=== PATIENT | female | born 1995 | race Caucasian/White ===

== ENCOUNTER → 2023-09-22 17:40 | Outpatient (CLI) | payer OTHER, SELFPAY ==
[2023-09-22 18:08] LABS: Appearance Urine UA CLOUDY; Bilirubin Urine UA NEGATIVE (NEGATIVE); Color Urine UA YELLOW; Glucose Urine UA NEGATIVE (Negative); Ketones Urine UA NEGATIVE (NEGATIVE); Leukocyte Esterase Urine UA TRACE (NEGATIVE); Nitrite Urine UA NEGATIVE (Negative); Occult Blood Urine UA NEGATIVE (Negative); Protein Urine UA NEGATIVE (Negative); Specific Gravity Urine UA 1.025 (1.000-1.035); Urobilinogen Urine UA 0.2 E.U./dL (0.2)
[2023-09-22 18:34] LABS: Bacteria Urine Few (2-10); RBC Urine 0-1/HPF (0-5/HPF); Squamous Epithelial Cell Urine 1-5 /HPF (0-5/HPF); WBC Urine 1-5/HPF (0-5/HPF)
== END ==
LOC: LAB 17:42
PROVIDERS: Referring Provider Family Medicine; Visit Provider Family Medicine
DX: O09.299 Supervision of pregnancy with other poor reproductive or obstetric history, unspecified trimester (principal); R30.0 Dysuria
CPT/HCPCS: 81001; 87077; 87086; 87186

== ENCOUNTER → 2023-09-25 13:58 | Outpatient (CLI) | payer OTHER, SELFPAY ==
[2023-09-25 20:09] LABS: Urine N gonorrhoeae NOT DETECTED
[2023-09-25 20:28] LABS: Urine Chlamydia NOT DETECTED
== END ==
PROVIDERS: Visit Provider Specialist
DX: Z34.81 Encounter for supervision of other normal pregnancy, first trimester (principal); Z3A.08 8 weeks gestation of pregnancy
CPT/HCPCS: 87491; 87591

== ENCOUNTER → 2023-09-25 14:21 | Outpatient (CLI) | payer OTHER, SELFPAY ==
[2023-09-25 15:59] LABS: Add Manual Diff / Slide Review NO; Basophils Absolute Auto 0 /uL (0-100); Basophils Percent Auto 0.6 % (0-2); Eosinophils Absolute Auto 100 /uL (0-450); Eosinophils Percent Auto 1.6 % (2-4); Hematocrit 34.8 % (36-46); Hemoglobin 11.5 g/dL (12.0-16.0); Lymphocytes Absolute Auto 1100 /uL (1100-4500); Mean Corpuscular HGB Conc 33.1 % (30-36); Mean Corpuscular Hemoglobin 26.5 PG (26-34); Mean Corpuscular Volume 80.2 fL (80-100); Monocytes Absolute Auto 600 /uL (0-900); Monocytes Percent Auto 8.6 % (3-14); Neutrophils Absolute Auto 5200 /uL (1500-7000); Neutrophils Percent Auto 74.2 % (50-75); Platelet Count 239 X10^3/uL (150-400); Red Blood Cell Count 4.34 X10^6/uL (4.0-5.2); Red Cell Distribution Width 15.3 % (11.6-14.8)
[2023-09-25 16:24] LABS: Alanine Aminotransferase 13 IU/L (<35); Aspartate Aminotransferase 24 IU/L (14-36); Blood Urea Nitrogen 9 mg/dL (7-17); Estimated Glomerular Filt Rate > 60 mL/min (>60); Uric Acid 4.1 mg/dL (2.5-6.2)
[2023-09-28 17:44] LABS: HIV 1 & 2 Ab/Ag 4th Gen Combo NEGATIVE (NEGATIVE); Hep C Virus Ab w/Reflex Quant NEGATIVE s/c (NEGATIVE); Hepatitis B Surface Antigen NEGATIVE s/c (NEGATIVE); Rubella Antibody IgG 1.8 IU/mL (>15)
[2023-09-29 03:16] LABS: RPR Screen Non Reactive (Non Reactive)
[2023-09-29 17:36] LABS: Varicella IgG Antibody >4000 index (Immune >165)
== END ==
PROVIDERS: Referring Provider Family Medicine; Visit Provider Family Medicine
DX: O09.291 Supervision of pregnancy with other poor reproductive or obstetric history, first trimester (principal); Z3A.08 8 weeks gestation of pregnancy
CPT/HCPCS: 36415; 80055; 82565; 84450; 84460; 84520; 84550; 86787; 86803; 86850; 86900; 86901; 87389; 87491; 87591

== ENCOUNTER → 2023-12-17 15:25 | Outpatient (CLI) | payer OTHER, SELFPAY ==
--- NOTE | 2023-12-17 15:26 | DI.US.S_ITS ---
PROCEDURE: US OB >= 14 WEEKS FETUS INDICATIONS: ANATOMY OUTSIDE/PRIOR DATING DATA: Last menstrual period (LMP): 07/29/2023 LMP-based estimated date of delivery (CHARLY): 05/04/2024. First dating scan (date and location): 09/25/2023. Estimated date of delivery (CHARLY) from first dating scan: 05/03/2024. Working CHARLY is 05/04/2024 TECHNIQUE: Real-time scanning was performed of the fetus, with image documentation and biometric measurements. COMPARISON: None. FINDINGS: General: A single living intrauterine gestation is present. Presentation: Transverse. Placenta: Placental position is posterior , without previa. Amniotic fluid index: 12.9 cm, normal range is 5-24 cm. Single deepest vertical pocket is 4.0 cm. heart rate: 143 beats per minute. Maternal cervical canal: 5.2 cm long. Normal lower limit is 2.5 cm. biometrics: Biparietal diameter: 20 weeks 2 days Head circumference: 20 weeks Abdominal circumference: 20 weeks 1 day Femur length: 20 weeks 6 days Clinically estimated gestational age: 20 weeks 1 day Composite gestational age from present scan: 20 weeks 2 days Estimated weight and percentile: 3 in 50 g; 59 percentile Anatomic survey: Neuro: Ventricles are non-dilated at less than 10 mm. Cisterna magna is normal at 3-11 mm. Cerebellum is normal in size and morphology. Nuchal skin fold: Normal at less than 6 mm between 14-21 weeks gestational age. Face: Nose and lips, facial profile are normal. Spine: No evidence for spina bifida. Heart: 4-chambered heart is present, with normal ventricular outflow tracts. Diaphragm: Diaphragm is intact. Stomach: Left-sided stomach is present. Kidneys: No hydronephrosis. Normal is less than 5 mm in 2nd trimester, less than 7 mm in 3rd trimester. Cord: 3-vessel cord has orthotopic insertion. Bladder: Normal in size. Extremities: All 4 extremities identified. IMPRESSION: 1. Single living IUP redemonstrated and interval growth is normal. 2. Normal anatomic survey. We strive to produce accurate, complete, and clear reports of imaging services. To assist us in improving patient care, this report was composed using standard report templates and voice recognition software. Therefore, it may contain abnormal punctuation, insertions and/or omissions. Occasional wrong-word or sound-alike substitutions may occur. Though we review the report and make efforts to correct it, we do recommend that the report be read carefully in proper context to recognize any text inaccuracies. Dictated by: Tim ENGLAND Interpreted: Aleta Lyles MD on 12/28/2023 at 16:38 Transcribed by: MAVIS on 12/28/2023 at 16:40 Approved by: Aleta Lyles M.D. on 12/28/2023 at 17:22
== END ==
PROVIDERS: Referring Provider Student in an Organized Health Care Education/Training Program; Visit Provider Student in an Organized Health Care Education/Training Program
DX: Z34.82 Encounter for supervision of other normal pregnancy, second trimester (principal); Z3A.20 20 weeks gestation of pregnancy
CPT/HCPCS: 76811

== ENCOUNTER → 2024-01-22 10:10 | Outpatient (CLI) | payer OTHER, SELFPAY ==
[2024-01-22 11:31] LABS: Glucose Fasting Gestational 77 mg/dL (76-95)
[2024-01-22 13:05] LABS: Glucose 1 Hour Gest 147 mg/dL (76-180)
[2024-01-22 14:49] LABS: Glucose 2 Hour Gest 153 mg/dL (76-155)
[2024-01-22 14:49] LABS: Glucose 3 Hour Gest 112 mg/dL (76-140); Glucose Tol Interp,Gestational INTERPRETATION
== END ==
PROVIDERS: Referring Provider Specialist; Visit Provider Specialist
DX: Z34.82 Encounter for supervision of other normal pregnancy, second trimester (principal); Z3A.26 26 weeks gestation of pregnancy
CPT/HCPCS: 36415; 82951; 82952; 85014; 85018

== ENCOUNTER 2024-01-24 15:38 | Observation (INO) | payer OTHER, SELFPAY ==
[2024-01-24 16:59] LABS: Appearance Urine UA CLEAR; Bilirubin Urine UA NEGATIVE (NEGATIVE); Color Urine UA YELLOW; Glucose Urine UA NEGATIVE (Negative); Ketones Urine UA 1+ (NEGATIVE); Leukocyte Esterase Urine UA NEGATIVE (NEGATIVE); Nitrite Urine UA NEGATIVE (Negative); Occult Blood Urine UA NEGATIVE (Negative); Protein Urine UA NEGATIVE (Negative); Specific Gravity Urine UA 1.015 (1.000-1.035); Urobilinogen Urine UA 0.2 E.U./dL (0.2)
[2024-01-24 17:08] LABS: Bacteria Urine Occasional (0-1); Culture Indicated Urine Cult Not Indicated; RBC Urine 0-1/HPF (0-5/HPF); Squamous Epithelial Cell Urine 10-30 /HPF (0-5/HPF); Urine Volume 10mL (spun); WBC Urine 0-1/HPF (0-5/HPF)
== END 2024-01-24 17:50 | disposition home or self-care (01) ==
LOC: LABOR 15:39
PROVIDERS: Admitting Provider Family Medicine; Referring Provider Family Medicine; Visit Provider Family Medicine
DX: O26.892 Other specified pregnancy related conditions, second trimester (principal); M54.50 Low back pain, unspecified; O13.2 Gestational [pregnancy-induced] hypertension without significant proteinuria, second trimester; Z3A.25 25 weeks gestation of pregnancy
CPT/HCPCS: 59025; 81001; G0378; G0379

== ENCOUNTER → 2024-04-15 11:13 | Outpatient (CLI) | payer OTHER, SELFPAY ==
[2024-04-15 12:30] LABS: Hematocrit 26.3 % (36-46); Hemoglobin 8.4 g/dL (12.0-16.0)
[2024-04-16 10:10] LABS: Strep Grp B PCR POS for Grp B Strep
== END ==
PROVIDERS: Referring Provider Obstetrics & Gynecology; Visit Provider Obstetrics & Gynecology
DX: Z34.83 Encounter for supervision of other normal pregnancy, third trimester (principal); Z3A.37 37 weeks gestation of pregnancy
CPT/HCPCS: 36415; 85014; 85018; 87653

== ENCOUNTER 2024-04-29 13:17 | Observation (INO) | payer OTHER, SELFPAY ==
[2024-04-29 14:03] LABS: Add Manual Diff / Slide Review NO; Basophils Absolute Auto 0 /uL (0-100); Basophils Percent Auto 0.4 % (0-2); Eosinophils Absolute Auto 100 /uL (0-450); Hematocrit 28.4 % (36-46); Lymphocytes Absolute Auto 1000 /uL (1100-4500); Lymphocytes Percent Auto 12.8 % (25-40); Mean Corpuscular HGB Conc 31.7 % (30-36); Mean Corpuscular Volume 72.6 fL (80-100); Monocytes Absolute Auto 600 /uL (0-900); Monocytes Percent Auto 7.6 % (3-14); Neutrophils Absolute Auto 5800 /uL (1500-7000); Neutrophils Percent Auto 78.2 % (50-75); Platelet Count 131 X10^3/uL (150-400); Red Blood Cell Count 3.91 X10^6/uL (4.0-5.2); White Blood Cell Count 7.5 X10^3/uL (4.5-11.0)
[2024-04-29 14:17] LABS: Alanine Aminotransferase 13 IU/L (<35); Albumin 3.7 g/dL (3.5-5.0); Albumin Globulin Ratio 1.3 (1.0-2.8); Alkaline Phosphatase 140 U/L (38-126); Aspartate Aminotransferase 19 IU/L (14-36); BUN Creatinine Ratio 8.2 (6-22); Bilirubin Total 0.6 mg/dL (0.2-1.3); Blood Urea Nitrogen 5 mg/dL (7-17); Calcium 9.1 mg/dL (8.4-10.2); Carbon Dioxide 19 mmol/L (22-32); Chloride 109 mmol/L (98-107); Estimated Glomerular Filt Rate > 60 mL/min (>60); Globulin 2.8 g/dL (1.7-4.1); Glucose 123 mg/dL (70-100); HEMOLYSIS < 15 (0-50); Potassium 3.7 mmol/L (3.4-5.1); Sodium 135 mmol/L (137-145); Total Protein 6.5 g/dL (6.3-8.2)
[2024-04-29 14:21] LABS: Creatinine Urine Random 70.44 mg/dL; Protein (Total) Urine Random 14 mg/dL (0-12); Protein Creatinine Ratio Urine 0.19 GRAM/24H
[2024-04-29 17:24] LABS: Uric Acid 5.3 mg/dL (2.5-6.2)
== END 2024-04-29 15:08 | disposition home or self-care (01) ==
PROVIDERS: Admitting Provider Obstetrics & Gynecology; Referring Provider Obstetrics & Gynecology; Visit Provider Obstetrics & Gynecology
DX: O13.3 Gestational [pregnancy-induced] hypertension without significant proteinuria, third trimester (principal); O47.1 False labor at or after 37 completed weeks of gestation; Z3A.39 39 weeks gestation of pregnancy
CPT/HCPCS: 59025; 80053; 82570; 84156; 84550; 85025; G0378; G0379

== ENCOUNTER 2024-05-01 23:22 | Observation (INO) | payer OTHER, SELFPAY | END 2024-05-01 23:59 | disposition home or self-care (01) | LOC: LABOR 23:25 | PROVIDERS: Admitting Provider Specialist; Referring Provider Specialist; Visit Provider Specialist | DX: O47.1 False labor at or after 37 completed weeks of gestation (principal); O13.3 Gestational [pregnancy-induced] hypertension without significant proteinuria, third trimester; Z3A.39 39 weeks gestation of pregnancy | CPT/HCPCS: G0378; G0379 ==

== ENCOUNTER 2024-05-04 07:15 | Inpatient (IN) | payer OTHER, SELFPAY ==
[2024-05-04] MEDS: LACTATED RINGERS 1,000 ML 100 ML IV ×2 (08:00→18:36)
[2024-05-04 08:52] LABS: Add Manual Diff / Slide Review NO; Basophils Absolute Auto 0 /uL (0-100); Basophils Percent Auto 0.7 % (0-2); Eosinophils Absolute Auto 100 /uL (0-450); Eosinophils Percent Auto 1.8 % (2-4); Hematocrit 28.9 % (36-46); Hemoglobin 9.1 g/dL (12.0-16.0); Lymphocytes Absolute Auto 1200 /uL (1100-4500); Lymphocytes Percent Auto 19.4 % (25-40); Mean Corpuscular HGB Conc 31.5 % (30-36); Mean Corpuscular Hemoglobin 23.9 PG (26-34); Monocytes Absolute Auto 600 /uL (0-900); Neutrophils Absolute Auto 4300 /uL (1500-7000); Neutrophils Percent Auto 68.1 % (50-75); Platelet Count 103 X10^3/uL (150-400); White Blood Cell Count 6.2 X10^3/uL (4.5-11.0)
[2024-05-04] MEDS: OXYTOCIN PREMIX 30 UNIT/500 ML PLAST..BAG IV (09:08)
[2024-05-04 09:13] LABS: Anisocytosis 3+
[2024-05-04] MEDS: AMPICILLIN 2,000 MG in SODIUM CHLORIDE 0.9% 100 ML 200 MG IV (09:34)
[2024-05-04 09:49] VITALS: BP 128/70
--- NOTE | 2024-05-04 09:57 | PM.OBHP.IH.1 ---
OB HPI Date/Time Date of admission: 05/04/24 Date Patient Seen: 05/04/24 Time Patient Seen: 09:10 History of Present Condition Chief complaint: L&D CHARLY Calculator Estimated Delivery Date Method Current WG Current Estimate 05/04/24 LMP (Uncertain) 46w 2d Other Estimates 05/03/24 Ultrasound #1 46w 3d Estimated Gestational Age (weeks): 40 : 4 Para: 3 care: good care, initiated at week # (8), number of visits (13) and pounds weight gain (31) Dating criteria OB: LMP confirmed by 1st trimester US Ultrasounds: normal 1st trimester US and normal mid trimester US Obstetrical complications: gestational hypertension Medical complications OB: other (low platelets) Indications Indication for induction OB: gestational HTN/pre-eclampsia Preadmission Labs Last OB Lab Results: Blood Type A Positive 05/21/24 18:18 Antibody Screen Negative 05/21/24 18:18 Hct 40.5 % (36-46) 05/21/24 18:18 Hgb 13.2 g/dL (12.0-16.0) 05/21/24 18:18 Hep Bs Antigen Negative s/c (NEGATIVE) 09/25/23 14:49 Hepatitis C Antibody Negative s/c (NEGATIVE) 09/25/23 14:49 Rubella Antibody 1.8 IU/mL (>15) L 09/25/23 14:49 VZV IgG Antibody >4000 index (Immune >165) 09/25/23 14:49 Group B Strep (PCR) Pos for grp b strep H 04/15/24 11:11 -: Chlamydia screen: negative, Gonorrhea screen: negative and Urine: negative -: PAP smear: Normal (11/05) External Labs -: Urine: negative Prior (ies) Past Pregnancies Del. Date GA/Weeks Labor Lgth Wt Sex Route Outcome Anesthesia Place Delv Breastfeed Preg Comp Name 10/24/12 41 6 10 lb 10 oz Male vaginal live - full term epidural [place], [place] attempted induced hyper- labor hemorrhage chorioamnionitis/endometr Candelario 06/13/17 40 72 9 lb 3 oz Male vaginal live - full term epidural MELVIN [place] ~30 months induced hyper- hemorrhage Imtiaz 05/04/22 40 6 7 lb 13 oz Male vaginal live - full term epidural [facility] Still going as of 09/21/23 induced hyper- hemorrhage other Kris Delivery Date: 05/04/22 Last Updated by: Rosa Ang RN KATIE w/ lots of spotting Evaluation Evaluation Baseline heart rate: 130 Variability: Moderate (11-25) monitor accelerations: Present Monitor Decelerations: Absent Status: Category l Dilation (cm): 2 Effacement (%): 75 station: -2 Position of cervix: mid Consistency: soft PFSH Medical History (Updated 06/05/24 @ 00:01 by ) History of radiation therapy PIH ( induced hypertension) 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 Surgical History (Updated 09/21/23 @ 09:40 by Rosa Ang RN) History of lung biopsy (~2000) [place] teeth extracted History of nephrectomy Family History (Updated 09/21/23 @ 10:22 by Rosa Ang RN) Grandmother Breast cancer Thyroid cancer Grandmother Interstitial lung disease Aunt Breast cancer Mother Breast cancer Hyperlipidemia Hypertension Bipolar disorder Depression Stillborn, abnormal Father Diabetes mellitus Hyperlipidemia Hypertension Heart failure Sister Depression Endometriosis Anxiety PCOS (polycystic ovarian syndrome) Brother Mckinney syndrome Son Autism Developmental disorder Speech delay Son Speech delay Tourette's syndrome Social History marital status: number of children: 3 (oldest currently living with his father) household members: spouse and children lives independently: Yes caregiver/support person: Yes housing: house pets and animals: Yes (cat (aware of precautions) education level: college (working on bachelor's degree) occupational status: previously employed and student current occupational exposures/hazards: No melissa/uatsdin: Caodaism special melissa needs: No travel history: recent (domestic only) seatbelt use: always helmet use: Yes water heater temp set < 120 deg: Yes working smoke detector in home: Yes fire extinguisher in home: Yes carbon monox detector in home: Yes firearms in home: Yes firearms unloaded and locked: Yes do you feel safe at home: Yes Smoking Status: Never smoker second hand exposure: No ( vapes, but not around the family) alcohol intake: never substance use type: does not use during the past year weight has: decreased > 10 lbs (below pre-baby weight) well-balanced diet: daily or most days daily servings fruits/ve or more times/day caffeine: Yes (~100-150mg/day) Type(s) of exercise: other (hiking) frequency: 5-6 times per week Meds Home Medications and Allergies Home Medications Medication Instructions Recorded Confirmed Type vitamin-ferrous sulfate 1 tab PO 1XD 09/21/23 06/16/24 History 27 mg iron-folic acid 0.8 mg tablet breast pump #1 ea 02/12/24 06/16/24 Rx escitalopram oxalate 10 mg tablet 10 mg PO DAILY #90 tabs 06/17/24 Rx (Lexapro) Allergies Allergy/AdvReac Type Severity Reaction Status Date / Time lactose AdvReac Mild Abdominal Verified 06/16/24 11:04 Pain OB Exam Vital signs Blood Pressure: 128/70 Pulse Rate: 83 Respiratory Rate: 18 Temperature: 98.3 F Narrative Exam Narrative: Generally: Patient is sitting up in bed, no acute distress Fundal height: 40 cm Estimated weight: 7-1/2 lb Extremities: No edema Objective Labs 05/05/24 05:40 Labs: Laboratory Results - last 24 hr 05/04/24 07:45 WBC 6.2 RBC 3.80 L Hgb 9.1 L Hct 28.9 L MCV 76.0 L D MCH 23.9 L MCHC 31.5 RDW 28.0 H Plt Count 103 L Neut % (Auto) 68.1 Lymph % (Auto) 19.4 L [place] % (Auto) 10.0 Eos % (Auto) 1.8 L Baso % (Auto) 0.7 Neut # (Auto) 4300 Lymph # (Auto) 1200 [place] # (Auto) 600 Eos # (Auto) 100 Baso # (Auto) 0 RBC Morphology See below Anisocytosis 3+ H Blood Type A Positive Antibody Screen Negative Assessment and Plan Assessment and Plan Assessment and Plan narrative: Assessment: 28-year-old 4 para 3 at 40 weeks' gestation for induction of labor due to gestational hypertension Group B strep positive Plan: Pitocin per protocol Epidural as necessary Antibiotics for group B strep prophylaxis Expected management to spontaneous vaginal delivery Time-Based Coding :: [TOTAL MINUTES] spent with patient and on the chart (including review of chart, obtaining history, exam, reviewing outside data, placing orders, documenting exam and treatment plan, and counseling patient) on [DATE].
[2024-05-04] MEDS: AMPICILLIN 1,000 MG in SODIUM CHLORIDE 0.9% 100 ML 200 MG IV ×2 (13:22→17:26)
[2024-05-04] MEDS: TRANEXAMIC ACID 1,000 MG in SODIUM CHLORIDE 0.9% 100 ML 600 MG IV (18:02)
[2024-05-04] MEDS: DERMOPLAST SPRAY 20% 60 ML 1 SPRAY TOP (20:11)
[2024-05-04] MEDS: WITCH HAZEL/GLYCERIN PADS 1 EACH TOP (20:11)
[2024-05-04] MEDS: KETOROLAC 30 MG/ML VIAL IV (20:12)
[2024-05-04] MEDS: METHYLERGONOVINE 0.2 MG TABLET PO (20:12)
[2024-05-05] MEDS: ACETAMINOPHEN 325 MG TABLET 650 MG PO (03:49)
[2024-05-05] MEDS: METHYLERGONOVINE 0.2 MG TABLET PO (03:49)
[2024-05-05 06:00] LABS: Hematocrit 33.3 % (36-46)
[2024-05-05 12:44] VITALS: BP 115/76; PULSE 82; RESP 15; TEMP 37.1
[2024-05-05] MEDS: MEASLES,MUMPS,RUBELLA VACC/PF 0.5 ML VIAL SUBCUT (14:09)
[2024-06-17 19:16] VITALS: BP 128/70; PULSE 83; RESP 18; TEMP 36.8
--- NOTE | 2024-06-17 19:19 | PM.OBPRVD ---
Events: Induced HTN and Labor Induction Labor & Delivery Delivery date: 05/04/24 Intrapartal Events: None Cervical ripening method: none Induction method: per pitocin protocol Delivery augmentation: rupture of membranes Delivery monitor: external FHT and external uterine Route of delivery: Episiotomy description: None L&D Laceration Description: None Quantitative Blood Loss: 100 Complications: None Narrative: Patient had artificial rupture membranes at 3:07 p.m.. She was complete at 5:34 p.m. and began pushing. She pushed for 15 minutes. At 1749, live delivered spontaneously in the OA presentation, perineum. Remainder body delivered without difficulty and was placed cord clamped cord bloods were obtained Pitocin was given fluids. The placenta delivered intact with a three-vessel cord at 5:56 p.m.. Perineum and vagina were inspected and there were no lacerations noted. QBL 100 cc. Apgars 9 at 1 minute and 9 at 5 minutes. Weight 7 lb 9.6 oz. . Mom and infant stable to recovery. Baby 1: gender: Male Presentation: vertex Position: Left Occiput Anterior Placenta delivery description: Spontaneous Cord Vessel Description: 3 Vessels and Clamped/Cut (After the cord stopped pulsing) score (1 min): 9 score (5 min): 9 weight: 7 lb 9.6 oz Plan for aftercare: Routine care
--- NOTE | 2024-06-17 19:27 | PM.OBDS.1 ---
Discharge Providers Provider Date of admission: 05/04/24 07:15 Discharge Date: 05/05/24 Primary care physician: RYANNE Stout Consults: 05/04/24 08:25 Consult to Anesthesiology Urgent Comment: Consulting Provider: Anesthesiologist Reason for consultation: Epidural Discharge provider: Dayana Quiroz MD Summary Hospital Course Date Patient Seen: 05/05/24 Time Patient Seen: 08:00 Diagnoses: Forty weeks' gestation Induction of labor with Pitocin Gestational hypertension Artificial rupture of membranes Spontaneous vaginal delivery Group B strep positive Hospital Course: Patient is a 28-year-old 4 para 4 who presented on May 04, 2024 for scheduled induction of labor with Pitocin at 40 weeks' gestation. She had an artificial rupture of membranes at 3:00 p.m.. She had a spontaneous vaginal delivery without complication. Her course was unremarkable and she was discharged home on May 05, 2024. Peripartum Data Delivery Method: Natural Vaginal Laceration Description: None Episiotomy description: None Procedures: Pitocin induction of labor Artificial rupture of membranes Spontaneous vaginal delivery Group B strep prophylaxis complications: none 1: Gender: Male Disposition of : home Status at Discharge Cognitive/behavioral status at discharge: oriented Functional status at discharge: independent ambulation Overall status at discharge: patient is progressing back to baseline Time Spent with Patient Time attestation: Total time spent providing and/or coordinating discharge services: Time spent: Less than 30 minutes Objective Labs 05/05/24 05:40 Exam Vital Signs (past 8 hours): - 06/17/24 19:16 Temperature 98.3 F Pulse Rate 83 Respiratory Rate 18 Blood Pressure 128/70 Narrative Exam Narrative: Generally: Patient is sitting up in bed, holding , no acute distress Fundus: Firm at U -1 Extremities: No edema, negative Homans Discharge Plan Discharge Plan Patient Disposition: Home Provider Discharge Comment: Call with fever, chills or bleeding vaginally more than a pad in an hour Ibuprofen 600mg every 6 hours as needed for cramping Tylenol 650mg every 6 hours as needed for pain Continue vitamins Discharge orders & Medications Prescriptions: Continued vit-ferrous sulfat-FA 27 mg iron- 0.8 mg tablet 1 tab PO 1XD No Action escitalopram oxalate [Lexapro] 10 mg tablet 10 mg PO DAILY Qty: 90 3RF (DME) breast pump Device See Rx Instructions .Route Qty: 1 0RF Rx Instructions: Double electric breast pump Follow up/Referrals: Dayana Quiroz MD [Physician] - (6 week Postaprtum Appt w/ Dr. Quiroz: June 16 @ 11am (please check in at 10:45am)) Diet/Activity/Treatments Diet: Regular Activity: Nothing in the vagina for 6 wks Skin/Wound/Dressing Care Report to your healthcare provider any signs of infection, such as:: chills, fever, increased pain and unusual drainage Visit Report/Discharge Packet Instructions: DI for Labor and Delivery, Vaginal Stand Alone Forms: Discharge: Care, Patient Portal/API, Stroke Signs & Symptoms Discharge Data Primary Care Provider: Danyell Galan
== END 2024-05-05 14:17 | disposition home or self-care (01) | DRG 807 ==
PROVIDERS: Admitting Provider Obstetrics & Gynecology; PCP Nurse Practitioner Family; Referring Provider Obstetrics & Gynecology; Visit Provider Obstetrics & Gynecology
DX: O13.4 Gestational [pregnancy-induced] hypertension without significant proteinuria, complicating childbirth (principal); Z37.0 Single live birth; O99.824 Streptococcus B carrier state complicating childbirth; Z3A.40 40 weeks gestation of pregnancy
CPT/HCPCS: 36415; 59050; 85014; 85018; 85025; 86850; 86900; 86901; G0379; J0290; J1885; J2590

== ENCOUNTER 2024-05-21 18:06 | Emergency (ER) | payer OTHER, SELFPAY ==
[2024-05-21 18:08] VITALS: BP 119/80; PULSE 79; RESP 17; TEMP 36.6; O2SAT 98; BMI 28.4
[2024-05-21 18:58] LABS: Add Manual Diff / Slide Review SLIDE REVIEW; Basophils Absolute Auto 100 /uL (0-100); Basophils Percent Auto 0.9 % (0-2); Eosinophils Absolute Auto 200 /uL (0-450); Eosinophils Percent Auto 3.1 % (2-4); Hematocrit 40.5 % (36-46); Hemoglobin 13.2 g/dL (12.0-16.0); Lymphocytes Absolute Auto 1600 /uL (1100-4500); Mean Corpuscular HGB Conc 32.6 % (30-36); Mean Corpuscular Hemoglobin 25.3 PG (26-34); Mean Corpuscular Volume 77.5 fL (80-100); Monocytes Absolute Auto 600 /uL (0-900); Monocytes Percent Auto 8.5 % (3-14); Neutrophils Absolute Auto 4500 /uL (1500-7000); Neutrophils Percent Auto 64.5 % (50-75); Platelet Count 202 X10^3/uL (150-400); Red Blood Cell Count 5.23 X10^6/uL (4.0-5.2); Red Cell Distribution Width 29.2 % (11.6-14.8)
[2024-05-21 19:18] LABS: BUN Creatinine Ratio 16.9 (6-22); Blood Urea Nitrogen 13 mg/dL (7-17); Calcium 9.6 mg/dL (8.4-10.2); Carbon Dioxide 23 mmol/L (22-32); Chloride 105 mmol/L (98-107); Estimated Glomerular Filt Rate > 60 mL/min (>60); Glucose 80 mg/dL (70-100); HEMOLYSIS < 15 (0-50); Potassium 4.2 mmol/L (3.4-5.1); Sodium 136 mmol/L (137-145)
--- NOTE | 2024-05-21 19:23 | DI.US.S_ITS ---
PROCEDURE: US PELVIC COMPLETE INDICATIONS: post bleeding TECHNIQUE: Real-time scanning was performed of the pelvic organs, with image documentation. Additional endovaginal scanning was necessary due to incomplete visualization of the adnexal and endometrial structures by transabdominal scanning. COMPARISON: None. FINDINGS: Uterus: Uterus is anteverted and normal in size at 12.0 x 6.2 x 8.7 cm. The myometrium is heterogeneous. The endometrium measures 24.8 mm combined thickness. Within the endometrial canal, there is no focal solid component or increased vascularity to suggest retained products of conception. Ovaries: The right ovary measures 3.3 x 3.7 x 1.8 cm, with a calculated ovarian volume of 11.4 cc. The left ovary measures 3.4 x 3.6 x 1.9 cm, with a calculated ovarian volume of 12.5 cc. The ovaries have a normal sonographic appearance. Less than 12 follicles can be seen in each ovary. No adnexal masses are seen. Other: No pathologic free abdominal or pelvic fluid. IMPRESSION: Heterogeneously thickened endometrium without focal solid component or increased vascularity to suggest retained products of conception, however this cannot entirely be excluded. Recommend clinical follow-up. Approved by: Alexus Marks M.D.,Ph.D. on 05/21/2024 at 20:54
[2024-05-21 19:48] LABS: Lactate (Lactic Acid) 0.8 mmol/L (0.7-2.1)
--- NOTE | 2024-05-21 19:57 | ED.PREGNANCY ---
HPI - General Chief complaint: Vaginal Bleeding Stated complaint: two weeks post passing clots Time Seen by Provider: 05/21/24 19:23 Source: patient Mode of arrival: Ambulatory History of Present Illness HPI Narrative: Patient is a 28-year-old from 05/04/2024 previous hemorrhage presenting today with increased vaginal bleeding. She reports that she has had a couple ping-pong ball clots. She has not yet filled pad. Based on her previous history she was told to come to the ED if she had increased clot size. She has no significant abdominal pain. and sleeping she says are going normal. No dizziness lightheadedness or other issues Related Data Home Medications Medication Instructions Recorded Confirmed vitamin-ferrous sulfate 1 tab PO 1XD 09/21/23 05/04/24 27 mg iron-folic acid 0.8 mg tablet Previous Rx's Medication Instructions Recorded breast pump #1 ea 02/12/24 Allergies Allergy/AdvReac Type Severity Reaction Status Date / Time lactose AdvReac Mild Abdominal Verified 05/21/24 18:08 Pain Exam Initial Vital Signs Initial Vital Signs: Vital Signs Temperature 97.8 F 05/21/24 18:08 Pulse Rate 79 05/21/24 18:08 Respiratory Rate 17 05/21/24 18:08 Blood Pressure 119/80 05/21/24 18:08 Pulse Oximetry 98 05/21/24 18:08 Oxygen Delivery Method Room Air 05/21/24 18:08 GENERAL: Alert well-appearing 28-year-old and in no acute distress. HEENT: Head atraumatic,EOMI, pupils reactive, face symmetric, moist mucous membranes CARDIOVASCULAR: Regular rate and rhythm without murmurs, rubs or gallops. RESPIRATORY: Breath sounds equal bilaterally, no wheezes rales or rhonchi. ABDOMEN: Soft, nontender. Normoactive bowel sounds all 4 quadrants. No guarding or rebound. PELVIC: External genitalia is normal, brownish blood in vaginal vault no excessive bleeding EXTREMITIES: Normal range of motion, no clubbing or edema. Neurovascularly intact NEUROLOGICAL: Alert and oriented x4.Normal gait and speech. SKIN: Warm, dry, no laceration, no petechiae, no rashes or lesions. Course Orders Ordered: ED Orders 05/21/24 19:23 US pelvic complete Stat 05/21/24 20:05 Urine Microscopic Stat Vital Signs Vital signs: Vital Signs - 8 hr 05/21/24 21:43 Temperature 98.2 F Pulse Rate 85 Respiratory Rate 18 Blood Pressure 129/87 Pulse Oximetry 99 Oxygen Delivery Method Room Air MDM - OB/Uterine Contractions Lab Data 05/21/24 18:18 05/21/24 18:18 Labs: Lab Results 05/21/24 05/21/24 Range/Units 18:18 20:05 WBC 7.0 (4.5-11.0) X10^3/uL RBC 5.23 H (4.0-5.2) X10^6/uL Hgb 13.2 (12.0-16.0) g/dL Hct 40.5 (36-46) % MCV 77.5 L (80-100) fL MCH 25.3 L (26-34) PG MCHC 32.6 (30-36) % RDW 29.2 H (11.6-14.8) % Plt Count 202 (150-400) X10^3/uL Neut % (Auto) 64.5 (50-75) % Lymph % (Auto) 23.0 L (25-40) % [place] % (Auto) 8.5 (3-14) % Eos % (Auto) 3.1 (2-4) % Baso % (Auto) 0.9 (0-2) % Neut # (Auto) 4500 (3429-3908) /uL Lymph # (Auto) 1600 (3557-2383) /uL [place] # (Auto) 600 (0-900) /uL Eos # (Auto) 200 (0-450) /uL Baso # (Auto) 100 (0-100) /uL RBC Morphology See below Anisocytosis 2+ H Microcytosis 2+ H Sodium 136 L (137-145) mmol/L Potassium 4.2 (3.4-5.1) mmol/L Chloride 105 (98-107) mmol/L Carbon Dioxide 23 (22-32) mmol/L BUN 13 (7-17) mg/dL Creatinine 0.77 (0.52-1.04) mg/dL Estimated GFR > 60 (>60) mL/min BUN/Creatinine Ratio 16.9 (6-22) Glucose 80 (70-100) mg/dL Lactate 0.8 (0.7-2.1) mmol/L Calcium 9.6 (8.4-10.2) mg/dL Urine RBC 5-10/hpf H (0-5/HPF) Urine WBC None seen (0-5/HPF) Ur Squamous Epith Cells 0-1 /hpf D (0-5/HPF) Urine Bacteria None seen (None) Ur Culture Indicated? Cult not indicated Vol Urine Centrifuged 10ml (spun) Blood Type A Positive Antibody Screen Negative Urine Dip Bedside Urine Glucose Negative Bedside Urine Bilirubin - Negative Bedside Urine Ketone - Negative Urine Specific [place] 1.015 Bedside Urine Occult Blood +++ Bedside Urine pH 6.0 Bedside Urine Protein - Negative Bedside Urine Urobilinogen - Negative Bedside Urine Nitrite - Negative Bedside Urine Leukocytes +/- 15 Esterase Imaging Data US - CORRECTIONS UNIT SUPERVISOR: Radiologist's Impression: PROCEDURE: US PELVIC COMPLETE INDICATIONS: post bleeding TECHNIQUE: Real-time scanning was performed of the pelvic organs, with image documentation. Additional endovaginal scanning was necessary due to incomplete visualization of the adnexal and endometrial structures by transabdominal scanning. COMPARISON: None. FINDINGS: Uterus: Uterus is anteverted and normal in size at 12.0 x 6.2 x 8.7 cm. The myometrium is heterogeneous. The endometrium measures 24.8 mm combined thickness. Within the endometrial canal, there is no focal solid component or increased vascularity to suggest retained products of conception. Ovaries: The right ovary measures 3.3 x 3.7 x 1.8 cm, with a calculated ovarian volume of 11.4 cc. The left ovary measures 3.4 x 3.6 x 1.9 cm, with a calculated ovarian volume of 12.5 cc. The ovaries have a normal sonographic appearance. Less than 12 follicles can be seen in each ovary. No adnexal masses are seen. Other: No pathologic free abdominal or pelvic fluid. IMPRESSION: Heterogeneously thickened endometrium without focal solid component or increased vascularity to suggest retained products of conception, however this cannot entirely be excluded. Recommend clinical follow-up. Approved by: Alexus Marks M.D.,Ph.D. on 05/21/2024 at 20: MDM Narrative Medical decision making narrative: Patient 28-year-old female with prior hemorrhage presenting today with increased vaginal bleeding. She is 2 weeks today she passed some ping-pong ball like clots. But she has not yet gone through a pad. She is hemodynamically stable hemoglobin hematocrit have actually improved significantly since she was . Other blood work has been reviewed and within normal limits. On exam she has scant amount of brown vaginal bleeding. Ultrasound has been reviewed she has new significant thickened endometrium or increased vascularity or any evidence to suggest retained products 2129 Dr. Quiroz updated patient's symptoms test results on exam states that patient is stable and can go home. Discharge Plan Departure Patient Disposition: Home Clinical Impression: bleeding Instructions: DI for Hemorrhage Activity Restrictions/Additional Instructions: *You have been diagnosed with bleeding *What to do: At this time blood work and ultrasound and exam are overall reassuring. You can follow-up with Dr. Quiroz scheduled *Continue to take medications as directed *Follow up with your primary care provider in 2-3 days or call [phone] *Return to ER if you should have excessive bleeding or than 2 pads in 1 hour dizziness lightheadedness passing out or any new, worsening or concerning symptoms Prescriptions: No Action vit-ferrous sulfat-FA 27 mg iron- 0.8 mg tablet 1 tab PO 1XD (DME) breast pump Device See Rx Instructions .Route Qty: 1 0RF Rx Instructions: Double electric breast pump Referrals: Danyell Galan ARNP [Primary Care Provider] - Stand Alone Forms: Patient Portal/API
[2024-05-21 20:09] LABS: Anisocytosis 2+
[2024-05-21 20:10] LABS: Microcytosis 2+
[2024-05-21 21:18] LABS: Bacteria Urine None Seen; Culture Indicated Urine Cult Not Indicated; RBC Urine 5-10/HPF (0-5/HPF); Squamous Epithelial Cell Urine 0-1 /HPF (0-5/HPF); Urine Volume 10mL (spun); WBC Urine None Seen (0-5/HPF)
[2024-05-21 21:43] VITALS: BP 129/87; PULSE 85; RESP 18; TEMP 36.8; O2SAT 99
== END 2024-05-21 21:44 | disposition home or self-care (01) ==
PROVIDERS: Emergency Provider Emergency Medicine; PCP Nurse Practitioner Family
DX: O72.1 Other immediate postpartum hemorrhage (principal)
CPT/HCPCS: 76856; 80048; 81003; 81015; 83605; 85025; 86850; 86900; 86901; 99282; 99284